=== PATIENT | male | born 1960 | race Caucasian/White ===

== ENCOUNTER 2022-06-13 11:06 | Inpatient (IN) | payer BC ==
[2022-06-13] MEDS ORDERED: NA CHLORIDE 0.9% 1,000 ML ONE (11:41)
[2022-06-13 11:47] LABS: Absolute Lymphocytes (CBC) 0.9 K/uL (0.7-4.9); Hematocrit 45.9 % (39.6-49.0); Lymphocytes % 4.8 % (15.3-44.8); MCV 83.9 fL (80-100); MPV 8.2 fL (7.6-11.3); RBC Red Blood Cell Count 5.47 M/uL (4.33-5.43)
[2022-06-13 12:02] LABS: Albumin 2.9 g/dL (3.4-5.0); Potassium 3.6 mmol/L (3.5-5.1); Protein, Total 6.9 g/dL (6.4-8.2)
--- NOTE | 2022-06-13 12:33 | RAD REPORT ---
EXAM DESCRIPTION: CT - Abdomen Pelvis W Contrast - 06/13/2022 12:22 pm CLINICAL HISTORY: Abdominal pain COMPARISON: none. TECHNIQUE: Computed axial tomography of the abdomen pelvis was obtained. 100 cc Isovue-300 was admin istered intravenously. Oral contrast was not requested which limits evaluation of bowel and appendix All CT scans are performed using dose optimization technique as appropriate and may include automated exposure control or mA/KV adjustment according to patient size. FINDINGS: The liver, spleen, pancreas, adrenal and kidneys appear unremarkable. Marked thickening involves the wall of the descending, transverse and ascending colon. Moderate thick ening involves the wall of sigmoid colon. Pneumatosis intestinalis is not seen. No free air. Trace amount of free fluid IMPRESSION: Marked pancolitis
[2022-06-13 12:54] LABS: Platelet Estimate ADEQ
[2022-06-13 12:55] LABS: Blood Morphology Comment NOT SEEN (NOT SEEN)
--- NOTE | 2022-06-13 13:31 | ER ---
Nurse's Notes [facility] Name: Yusef Andrade Age: 61 yrs Sex: Male : 1960 Arrival Date: 06/13/2022 Time: 11:10 Bed 19 Private MD: Diagnosis: Pancolitis;Abdominal pain, Generalized;Leukocytosis Presentation: 06/13 11:23 Chief complaint: Patient states: diarrhea , abd pain with BM X 5 weeks. Coronavirus iw screen: Client presents with at least one sign or symptom that may indicate coronavirus-19. Ebola Screen: Patient negative for fever greater than or equal to 101.5 degrees Fahrenheit, and additional compatible Ebola Virus Disease symptoms Patient denies exposure to infectious person. Patient denies travel to an Ebola-affected area in the 21 days before illness onset. No symptoms or risks identified at this time. Initial Sepsis Screen: Does the patient meet any 2 criteria? No. Patient's initial sepsis screen is negative. Does the patient have a suspected source of infection? No. Patient's initial sepsis screen is negative. Risk Assessment: Do you want to hurt yourself or someone else? Patient reports no desire to harm self or others. Onset of symptoms was April 2022. 11:23 Method Of Arrival: Ambulatory iw 11:23 Acuity: HELEN 3 iw Historical: - Allergies: 11:24 No Known Allergies; iw - Home Meds: 11:24 None [Active]; iw - PMHx: 11:24 None; iw - Immunization history:: Client reports having NOT received the Covid vaccine. - Social history:: Smoking status: Patient denies any tobacco usage or history of. Screenin:53 Abuse screen: Denies threats or abuse. Denies injuries from another. Nutritional tp1 screening: No deficits noted. Tuberculosis screening: No symptoms or risk factors identified. Fall Risk No fall in past 12 months (0 pts). No secondary diagnosis (0 pts). IV access (20 points). Ambulatory Aid- None/Bed Rest/Nurse Assist (0 pts). Gait- Normal/Bed Rest/Wheelchair (0 pts) Mental Status- Oriented to own ability (0 pts). Assessment: 11:51 General: Appears in no apparent distress. comfortable, Behavior is calm, cooperative. tp1 Pain: Complains of pain in abdomen Pain does not radiate. Pain currently is 0 out of 10 on a pain scale. Quality of pain is described as sharp, Pain began 7 weeks ago. states pain only occurs before a bowel movement Is intermittent. Neuro: Level of Consciousness is awake, alert, obeys commands, Oriented to person, place, time, situation. Cardiovascular: Patient's skin is warm and dry. Respiratory: Airway is patent Respiratory effort is even, unlabored. GI: Abdomen is flat, non-distended, Abd is soft and non tender X 4 quads. Reports diarrhea, vomiting. : No signs and/or symptoms were reported regarding the genitourinary system. EENT: No signs and/or symptoms were reported regarding the EENT system. Derm: Skin is pink, warm \T\ dry. Musculoskeletal: Circulation, motion, and sensation intact. 12:16 Reassessment: escorted to CT via stretcher by [employer]. tp1 12:30 Reassessment: returned from CT. tp1 12:56 Reassessment: Patient appears in no apparent distress at this time. No changes from tp1 previously documented assessment. Patient and/or family updated on plan of care and expected duration. Pain level reassessed. Patient is alert, oriented x 3, equal unlabored respirations, skin warm/dry/pink. Patient denies pain at this time. 13:40 Reassessment: Patient appears in no apparent distress at this time. No changes from tp1 previously documented assessment. Patient is alert, oriented x 3, equal unlabored respirations, skin warm/dry/pink. resting in bed visiting with Patient denies pain at this time. 14:40 Reassessment: Patient appears in no apparent distress at this time. Patient is alert, tp1 oriented x 3, equal unlabored respirations, skin warm/dry/pink. Patient denies pain at this time. 15:28 Reassessment: Patient appears in no apparent distress at this time. No changes from tp1 previously documented assessment. Patient is alert, oriented x 3, equal unlabored respirations, skin warm/dry/pink. Patient denies pain at this time. 16:30 Reassessment: Patient appears in no apparent distress at this time. No changes from tp1 previously documented assessment. 17:11 Reassessment: Patient appears in no apparent distress at this time. No changes from tp1 previously documented assessment. Patient is alert, oriented x 3, equal unlabored respirations, skin warm/dry/pink. resting in be visiting with Patient denies pain at this time. 17:14 Reassessment: attempted to give report. tp1 17:21 Reassessment: report given to Deena LEONARDO. tp1 Vital Signs: 11:23 BP 115 / 62; Pulse 98; Resp 16; Pulse Ox 99% on R/A; iw 11:53 BP 90 / 53; Pulse 81; Resp 16; Temp 97.8(TE); Pulse Ox 96% on R/A; iw 12:40 BP 102 / 61; Pulse 65; Resp 16; Pulse Ox 100% on R/A; tp1 13:15 BP 121 / 79; Pulse 82; Resp 16; Pulse Ox 100% on R/A; tp1 16:01 BP 110 / 68; Pulse 82; Resp 16; Pulse Ox 100% on R/A; tp1 17:11 BP 110 / 66; Pulse 77; Resp 16; Pulse Ox 100% on R/A; tp1 ED Course: 11:10 Patient arrived in ED. am2 11:17 Mejia Pabon DO is Attending Physician. ms3 11:24 Triage completed. iw 11:25 Arm band placed on. iw 11:33 Lizzy Lan, MALISSA is Primary Nurse. tp1 11:39 Initial lab(s) drawn, by me, sent to lab. Inserted saline lock: 22 gauge in left iw antecubital area, using aseptic technique. Blood collected. 11:55 Patient has correct armband on for positive identification. Call light in reach. Side tp1 rails up X 1. Adult w/ patient. 12:24 CT Abd/Pelvis - IV Contrast Only In Process Unspecified. EDMS 13:30 Tres Be is Hospitalizing Provider. ms3 13:52 intact, bleeding controlled, No redness/swelling at site. Pressure dressing applied, 22 vg1 g L AC infiltrated. 14:06 Inserted saline lock: 22 gauge in left wrist, using aseptic technique. vg1 14:06 First set of blood cultures drawn by me. vg1 14:14 Blood Culture Adult (2) Sent. kc6 14:14 Lactate Sent. kc6 16:03 No provider procedures requiring assistance completed. tp1 17:22 Patient admitted, IV remains in place. tp1 Administered Medications: 11:46 Drug: NS 0.9% 1000 ml Route: IV; Rate: 1 bolus; Site: left antecubital; tp1 13:30 Follow up: IV Status: Completed infusion; IV Intake: 1000ml vg1 Medication: 16:02 VIS not applicable for this client. tp1 Intake: 13:30 IV: 1000ml; Total: 1000ml. vg1 Outcome: 13:31 Decision to Hospitalize by Provider. ms3 17:22 Admitted to Med/surg accompanied by tech, via stretcher, room 406, Report called to tp1 deena 17:22 Condition: good 17:22 Discharge instructions given to patient, family, Instructed on the need for admit, Demonstrated understanding of instructions. 17:59 Patient left the ED. tp1 Signatures: Dispatcher [employer] EDNicole Kumar, RN RN Merissa Swift Victoria RN RN vg1 Mejia Pabon, DO ms3 Lizzy Lan RN RN tp1 Madeline Pereira kc6 Corrections: (The following items were deleted from the chart) 12:59 11:53 BP 90 / 53; Pulse 81bpm; Resp 16bpm; Pulse Ox 96% RA; tp1 iw 16:02 16:02 Patient has correct armband on for positive identification. Call light in reach. tp1 Side rails up X 1. Adult w/ patient. tp1
--- NOTE | 2022-06-13 13:31 | EDPHYS ---
Physician Documentation [facility] Name: Yusef Andrade Age: 61 yrs Sex: Male : 1960 Arrival Date: 06/13/2022 Time: 11:10 Bed 19 Private MD: ED Physician Mejia Pabon HPI: 06/13 11:32 This 61 yrs old Male presents to ER via Ambulatory with complaints of Abdominal Pain, ms3 Diarrhea. 11:32 61-year-old male with no past medical history presents for lower abdominal pain while ms3 defecating for 7 weeks. Patient states he has seen his primary care physician and was seen at another emergency department. Patient states his primary care physician placed him on a antibiotic that he is unaware of the name of. Patient states that this time he is not having pain. Patient states he has severe pain with defecation. Patient denies alleviating factors. Patient denies fevers, chills, nausea, vomiting.. Historical: - Allergies: 11:24 No Known Allergies; iw - Home Meds: 11:24 None [Active]; iw - PMHx: 11:24 None; iw - Immunization history:: Client reports having NOT received the Covid vaccine. - Social history:: Smoking status: Patient denies any tobacco usage or history of. ROS: 11:32 Constitutional: Negative for fever, and chills. Neck: Negative for injury, pain, and ms3 swelling, Cardiovascular: Negative for chest pain, and palpitations. Respiratory: Negative for shortness of breath, cough, wheezing, and pleuritic chest pain. 11:32 MS/Extremity: Negative for injury and deformity, Neuro: Negative for headache, weakness, numbness, tingling. 11:32 Abdomen/GI: Positive for abdominal pain. 11:32 All other systems are negative. Exam: 11:32 Constitutional: This is a well developed, well nourished patient who is awake, alert, ms3 and in no acute distress. Head/Face: Normocephalic, atraumatic. Chest/axilla: Normal chest wall appearance and motion. Nontender with no deformity. Cardiovascular: Regular rate and rhythm with a normal S1 and S2. No gallops, murmurs, or rubs. Normal PMI, no JVD. No pulse deficits. Respiratory: Lungs have equal breath sounds bilaterally, clear to auscultation and percussion. No rales, rhonchi or wheezes noted. No increased work of breathing, no retractions or nasal flaring. Abdomen/GI: Soft, non-tender, with normal bowel sounds. No distension or tympany. No guarding or rebound. No evidence of tenderness throughout. Skin: Warm, dry with normal turgor. Normal color with no rashes, no lesions, and no evidence of cellulitis. MS/ Extremity: Pulses equal, no cyanosis. Neurovascular intact. Full, normal range of motion. Psych: Awake, alert, with orientation to person, place and time. Behavior, mood, and affect are within normal limits. 13:31 ECG was reviewed by the Attending Physician. ms3 Vital Signs: 11:23 BP 115 / 62; Pulse 98; Resp 16; Pulse Ox 99% on R/A; iw 11:53 BP 90 / 53; Pulse 81; Resp 16; Temp 97.8(TE); Pulse Ox 96% on R/A; iw 12:40 BP 102 / 61; Pulse 65; Resp 16; Pulse Ox 100% on R/A; tp1 13:15 BP 121 / 79; Pulse 82; Resp 16; Pulse Ox 100% on R/A; tp1 16:01 BP 110 / 68; Pulse 82; Resp 16; Pulse Ox 100% on R/A; tp1 17:11 BP 110 / 66; Pulse 77; Resp 16; Pulse Ox 100% on R/A; tp1 MDM: 11:29 Patient medically screened. ms3 11:32 Differential diagnosis: Nonspecific abd pain, diverticulitis, Proctitis versus ms3 malignancy. 13:31 Data reviewed: vital signs, nurses notes, lab test result(s), EKG, radiologic studies, ms3 and as a result, I will discharge patient. Counseling: I had a detailed discussion with the patient and/or guardian regarding: the historical points, exam findings, and any diagnostic results supporting the discharge/admit diagnosis, lab results, radiology results, the need for further work-up and treatment in the hospital. 13:31 ED course: Discussed labs and imaging with patient and his . They understand/ agree ms3 with plan. All questions answered. Discussed case with Dr Be and he accepts patient as admission.. 06/13 11:30 Order name: CBC with Diff; Complete Time: 13:12 ms3 06/13 11:30 Order name: CMP; Complete Time: 13:12 ms3 06/13 11:30 Order name: Lipase; Complete Time: 13:12 ms3 06/13 11:30 Order name: Urine Microscopic Only ms3 06/13 11:56 Order name: Manual Differential; Complete Time: 13:12 EDMS 06/13 13:13 Order name: Blood Culture Adult (2) ms3 06/13 11:30 Order name: CT Abd/Pelvis - IV Contrast Only; Complete Time: 13:12 ms3 06/13 13:13 Order name: Lactate ms3 06/13 13:13 Order name: Protime (+inr) ms3 06/13 13:13 Order name: Ptt, Activated ms3 06/13 13:37 Order name: Glucose, Ancillary Testing EDMS 06/13 13:40 Order name: SARS RAPID ms3 06/13 17:45 Order name: Urine Dipstick-Ancillary EDMS 06/13 11:30 Order name: IV Saline Lock; Complete Time: 11:41 ms3 06/13 11:30 Order name: Labs collected and sent; Complete Time: 11:41 ms3 06/13 11:30 Order name: Urine Dipstick-Ancillary (obtain specimen); Complete Time: 17:45 ms3 06/13 13:13 Order name: Accucheck; Complete Time: 13:37 3 06/13 13:13 Order name: Cardiac monitoring; Complete Time: 13:37 ms3 06/13 13:13 Order name: EKG - Nurse/Tech; Complete Time: 13:37 3 06/13 13:13 Order name: IV Saline Lock - Large Bore; Complete Time: 14:11 3 06/13 13:13 Order name: O2 Per Protocol; Complete Time: 13:37 3 06/13 13:13 Order name: O2 Sat Monitoring; Complete Time: 13:37 ms3 EC:31 Rate is 65 beats/min. Rhythm is regular. QRS [place] is Normal. OR interval is normal. QRS ms3 interval is normal. Clinical impression: NSR w/ Non-specific ST/T Changes. Interpreted by me. Reviewed by me. Administered Medications: 11:46 Drug: NS 0.9% 1000 ml Route: IV; Rate: 1 bolus; Site: left antecubital; tp1 13:30 Follow up: IV Status: Completed infusion; IV Intake: 1000ml vg1 Disposition Summary: 06/13/22 13:31 Hospitalization Ordered Hospitalization Status: Inpatient Admission ms3 Provider: Tres Be ms3 [facility] ms3 Condition: Stable ms3 Problem: new ms3 Symptoms: are unchanged ms3 Bed/Room Type: Standard ms3 Room Assignment: 406(06/13/22 16:41) dw Diagnosis - Pancolitis ms3 - Abdominal pain, Generalized ms3 - Leukocytosis ms3 Forms: - Medication Reconciliation Form ms3 - SBAR form ms3 Signatures: Dispatcher [employer] Alexandria Bennett RN RN dw Nicole Rader RN MALISSA iw Mejia Pabon DO DO ms3 Lizzy Lan RN RN tp1 Jazmyn Velasco RN vg1 Corrections: (The following items were deleted from the chart) 16:41 13:31 ms3 dw 22:35 13:31 Counseling: I had a detailed discussion with the patient and/or guardian ms3 regarding: the historical points, exam findings, and any diagnostic results supporting the discharge/admit diagnosis, lab results, radiology results, the need for outpatient follow up, to return to the emergency department if symptoms worsen or persist or if there are any questions or concerns that arise at home, ms3
[2022-06-13 14:28] LABS: Protime INR 1.25
[2022-06-13 15:03] LABS: SARS-CoV-2 Antigen Rapid Res Negative (Negative)
--- NOTE | 2022-06-13 15:46 | P.HP ---
Certification for Inpatient Patient admitted to: Inpatient With expected LOS: >2 Midnights Practitioner: I am a practitioner with admitting privileges, knowledge of patient current condition, hospital course, and medical plan of care. Services: Services provided to patient in accordance with Admission requirements found in Title 42 Section 412.3 of the Code of Federal Regulations Patient History Date of Service: 06/13/22 Reason for admission: Diarrhea History of Present Illness: 61 y/o man with past medical history of hypertension and hyperlipidemia presented to the ED complaining 5-week history of abdominal pain and diarrhea. He reports 1 vomiting episode. He states that 7-day course of ciprofloxacin with no improvement. Symptoms became worse. He denied any fever. He denied blood in the stool. He denied any fever. His last meal was this morning. Work-up in the emergency department revealed leukocytosis up to 19,000, serum creatinine elevated indicating acute renal failure. Patient is hospitalized for further management. - Past Medical/Surgical History -: Hypertension -: GERD - Family History Mother -: Other (see notes) (Diverticulitis) - Social History Smoking Status: Never smoker Alcohol use: No CD- Drugs: No Place of Residence: Home Review of Systems Other: Except as documented, all other systems reviewed and negative. Physical Examination - Physical Exam General: Alert, In no apparent distress, Oriented x3 HEENT: Atraumatic, PERRLA, Mucous membr. moist/pink, EOMI, Sclerae nonicteric Neck: Supple, JVD not distended Respiratory: Clear to auscultation bilaterally, Normal air movement Cardiovascular: No edema, Regular rate/rhythm, Normal S1 S2, No murmurs Gastrointestinal: Normal bowel sounds, Soft and benign, Non-distended, No tenderness, No rebound, No guarding Musculoskeletal: No swelling, No tenderness Integumentary: No rashes, No erythema, No cyanosis Neurological: Normal speech, Normal strength at 5/5 x4 extr, Cranial nerves 3-12 intact Lymphatics: No axilla or inguinal lymphadenopathy - Studies Laboratory Data (last 24 hrs) 06/13/22 14:06: PT 13.8 H, INR 1.25, APTT 24.8 06/13/22 11:37: Sodium 134 L, Potassium 3.6, BUN 19 H, Creatinine 1.51 H, Glucose 121 H, Total Bilirubin 1.0, AST 21, ALT 36, Alkaline Phosphatase 78, Lipase 39 L 06/13/22 11:37: WBC 19.60 H, Hgb 15.2, Hct 45.9, Plt Count 316 Assessment and Plan - Problems (Diagnosis) (1) Colitis Current Visit: Yes Status: Acute (2) Leukocytosis Current Visit: Yes Status: Acute - Plan Admit to the medical floor. Start IV antibiotics. Supportive measures with IV hydration. Stool studies-C. difficile, ova and parasites, fecal leukocyte and culture. Serial abdominal examination. Clear liquid diet. Monitor response to treatment. Monitor CBC to follow leukocytosis. Monitor and optimize electrolytes. - Advance Directives Does patient have a Living Will: No Does patient have a Durable POA for Healthcare: No
[2022-06-13 17:45] LABS: Urine Blood Negative (Negative); Urine Glucose Negative (Negative); Urine Protein 2+ (Negative); Urine Specific Gravity 1.015 (1.005-1.030)
[2022-06-13 17:58] VITALS: BMI 25.1
[2022-06-13] MEDS ORDERED: MORPHINE 2 MG/ML SYR IV PRN (18:28)
[2022-06-13] MEDS ORDERED: ACETAMINOPHEN 500 MG TAB PO PRN (18:28)
[2022-06-13] MEDS ORDERED: ONDANSETRON 4 MG/2 ML VIAL IV PRN (18:28)
[2022-06-13] MEDS: NA CHLORIDE 0.9% 1,000 ML IV SCH (18:53)
[2022-06-13] MEDS: PIPER TAZO 3.375 GM in NA CHLORIDE 0.9% 100 ML IV SCH (18:53)
[2022-06-13 18:56] LABS: Urine Bacteria <20 /HPF (<20); Urine Bilirubin NEGATIVE (Negative); Urine Blood Negative (Negative); Urine Clarity Clear (Clear); Urine Color Yellow (Yellow); Urine Glucose NEGATIVE (Negative); Urine Mucus Slight /HPF (None Seen); Urine Protein 1+ (Negative); Urine Urobilinogen Normal (Normal)
--- NOTE | 2022-06-13 20:47 | P.PN ---
Date of Service: 06/14/22 Subjective: feels slightly better ongoing diarrhea, watery, small amounts at a time ROS: 10 point ROS as noted above, otherwise negative Physical Exam: Gen: NAD, AOx3 HEENT: normal conjunctiva, sclera anicteric CV: regular rate & rhythm, no edema Pulm: non-labored respirations, clear bilaterally Abd: soft, non-tender, non-distended Neuro: normal speech, normal affect, moves all extremities vitals reviewed Problem List Pancolitis, failed outpatient treatment HTN HLD LULI Pancolitis CT in ED: marked thickening of descending, transverse, and ascending colon. Moderate thickening involving wall of sigmoid colon. No pneumatosis intestinalis, no free air s/p 7 day course of Cipro as outpatient continue trend CBC stool studies ordered on admission c.diff sent today CLD, advance as tolerated no prior labs, Cr elevated, suspect LULI pt denied CKD secondary to hypovolemia improved VTE: lovenox Code: full Dispo: home, ~2-3 days Time Spent Managing Pts Care (In Minutes): 35
[2022-06-13] MEDS: ENOXAPARIN 40 MG/0.4 ML SQ SCH (21:37)
[2022-06-14] MEDS: PIPER TAZO 3.375 GM in NA CHLORIDE 0.9% 100 ML IV SCH ×3 (01:50→16:06)
[2022-06-14] MEDS: NA CHLORIDE 0.9% 1,000 ML IV SCH ×3 (02:28→22:44)
[2022-06-14 04:17] LABS: Absolute Lymphocytes (CBC) 1.5 K/uL (0.7-4.9); Hematocrit 36.3 % (39.6-49.0); Lymphocytes % 8.4 % (15.3-44.8); MPV 8.5 fL (7.6-11.3); RBC Red Blood Cell Count 4.37 M/uL (4.33-5.43)
[2022-06-14 04:25] LABS: Magnesium 2.1 mg/dL (1.8-2.4); Phosphorus 2.6 mg/dL (2.5-4.9); Potassium 3.4 mmol/L (3.5-5.1)
[2022-06-14] MEDS: ENOXAPARIN 40 MG/0.4 ML SQ SCH (08:41)
[2022-06-14] MEDS ORDERED: POTASSIUM CL SA 10 MEQ TAB PO ONE ×3 (09:00→22:34)
[2022-06-14 11:52] LABS: C.diff Antigen/Toxin Ag neg : Tox neg (NEG : NEG)
[2022-06-14] MEDS: Banana Flakes/T-Galactooligos 1 Dose Packet PO SCH (20:54)
[2022-06-15] MEDS: PIPER TAZO 3.375 GM in NA CHLORIDE 0.9% 100 ML IV SCH ×3 (00:50→16:22)
--- NOTE | 2022-06-15 06:34 | P.PN ---
Date of Service: 06/15/22 Subjective: feels slightly better diarrhea getting slightly more firm, reports ~5 BMs since midnight, small amount tolerating liquids, no worsening in pain ROS: 10 point ROS as noted above, otherwise negative Physical Exam: Gen: NAD, AOx3 HEENT: normal conjunctiva, sclera anicteric CV: regular rate & rhythm, no edema Pulm: non-labored respirations, clear bilaterally Abd: soft, non-tender, non-distended Neuro: normal speech, normal affect, moves all extremities vitals reviewed Problem List Pancolitis, failed outpatient treatment HTN HLD LULI Pancolitis CT in ED: marked thickening of descending, transverse, and ascending colon. Moderate thickening involving wall of sigmoid colon. No pneumatosis intestinalis, no free air s/p 7 day course of Cipro as outpatient continue antibiotic WBCs downtrending stool studies ordered on admission c.diff negative advance to soft diet no prior labs, Cr elevated, suspect LULI pt denied CKD secondary to hypovolemia improved VTE: lovenox Code: full Dispo: home, ~1 day Time Spent Managing Pts Care (In Minutes): 35
[2022-06-15] MEDS: NA CHLORIDE 0.9% 1,000 ML IV SCH ×2 (06:45→15:24)
[2022-06-15 07:41] LABS: Hematocrit 35.2 % (39.6-49.0); MCV 83.3 fL (80-100); MPV 8.4 fL (7.6-11.3); RBC Red Blood Cell Count 4.23 M/uL (4.33-5.43)
[2022-06-15] MEDS: ENOXAPARIN 40 MG/0.4 ML SQ SCH (08:19)
[2022-06-15] MEDS: Banana Flakes/T-Galactooligos 1 Dose Packet PO SCH ×2 (08:23→19:49)
--- NOTE | 2022-06-15 13:11 | EKG ---
Test Date: 2022-06-13 Test Time: 13:38:30 Merchandise Appraiser: IAM MEASUREMENT RESULTS: Intervals: Rate: 65 MN: 130 QRSD: 98 QT: 404 QTc: 420 [place]: P: 22 MN: 130 QRS: -21 T: -20 INTERPRETIVE STATEMENTS: Normal sinus rhythm Nonspecific T wave abnormality Abnormal ECG No previous ECG available for comparison Electronically Signed On 06-15-22 13:06:44 CDT by Jerome Nation
[2022-06-15 22:23] VITALS: O2SAT 99
[2022-06-16] MEDS: PIPER TAZO 3.375 GM in NA CHLORIDE 0.9% 100 ML IV SCH (01:00)
[2022-06-16 07:47] LABS: MCV 82.2 fL (80-100); MPV 7.8 fL (7.6-11.3)
[2022-06-16 08:11] VITALS: BP 154/75; TEMP 97
--- NOTE | 2022-06-16 21:21 | P.DS ---
Admission Date: 06/13/22 Discharge Date: 06/16/22 Disposition: ROUTINE DISCHARGE Discharge Condition: GOOD Reason for Admission: Diarrhea Brief History of Present Illness: 61yo M, PMH: HTN, HLD Presented to ED with 5 days of abdominal and diarrhea. He reports 1 vomiting episode. He states that 7-day course of ciprofloxacin with no improvement. Symptoms became worse. He denied any fever. He denied blood in the stool. He denied any fever. His last meal was this morning. Work-up in the emergency department revealed leukocytosis up to 19,000, serum creatinine elevated indicating acute renal failure. Patient is hospitalized for further management. Hospital Course: Problem List Pancolitis, failed outpatient treatment HTN HLD LULI Patient presented with diarrhea, found to have Pancollitis. He improved with bowel rest, IV fluids, and IV zosyn. His diarrhea significantly improved, started to have more formed stools and less frequent. His diet was advanced and tolerated soft diet /low fiber well. He remained afebrile and leukocytosis significantly improved. Cultures were negative. Patient was deemed stable for discharge home. 10 more days of antibiotics - prescribed Augmentin as transition from Zosyn. Recommend daily over the counter probiotic while on antibiotics. Continue low fiber diet. Follow up with PCP within ~1 week. Recommend follow up with GI. Should have a colonoscopy in the next 2-3 months. Vital Signs/Physical Exam: Temp Pulse Resp BP Pulse Ox 97.0 F 52 14 154/75 H 97 06/16/22 08:00 06/16/22 08:00 06/16/22 08:00 06/16/22 08:00 06/16/22 08:00 Physical Exam: Gen: NAD, AOx3 HEENT: normal conjunctiva, sclera anicteric CV: regular rate & rhythm, no edema Pulm: non-labored respirations, clear bilaterally Abd: soft, non-tender, non-distended Laboratory Data at Discharge: WBC 8.10 K/uL (4.3-10.9) 06/16/22 07:25 Hgb 12.5 g/dL (13.6-17.9) L 06/16/22 07:25 Hct 37.0 % (39.6-49.0) L 06/16/22 07:25 Plt Count 273 K/uL (152-406) 06/16/22 07:25 PT 13.8 SECONDS (9.5-12.5) H 06/13/22 14:06 INR 1.25 06/13/22 14:06 APTT 24.8 SECONDS (24.3-36.9) 06/13/22 14:06 Sodium 142 mmol/L (136-145) D 06/15/22 03:16 Potassium 4.0 mmol/L (3.5-5.1) D 06/15/22 03:16 BUN 13 mg/dL (7-18) 06/15/22 03:16 Creatinine 1.00 mg/dL (0.55-1.3) 06/15/22 03:16 Glucose 101 mg/dL (74-106) 06/15/22 03:16 Phosphorus 2.6 mg/dL (2.5-4.9) 06/14/22 03:51 Magnesium 2.1 mg/dL (1.8-2.4) 06/14/22 03:51 Total Bilirubin 1.0 mg/dL (0.2-1.0) 06/13/22 11:37 AST 21 U/L (15-37) 06/13/22 11:37 ALT 36 U/L (12-78) 06/13/22 11:37 Alkaline Phosphatase 78 U/L (45-117) 06/13/22 11:37 Lipase 39 U/L (73-393) L 06/13/22 11:37 Home Medications: Lisinopril [Zestril] 10 mg PO BEDTIME 06/13/22 Pravastatin Sodium 40 mg PO BEDTIME 06/13/22 Amox/Clavulanate [Augmentin 875-125 Tab] 1 tab PO BID 10 Days #20 tab 06/16/22 New Medications: Amox/Clavulanate [Augmentin 875-125 Tab] 1 tab PO BID 10 Days #20 tab Physician Discharge Instructions: Patient presented with diarrhea, found to have Pancollitis. He improved with bowel rest, IV fluids, and IV zosyn. His diarrhea significantly improved, started to have more formed stools and less frequent. His diet was advanced and tolerated soft diet /low fiber well. He remained afebrile and leukocytosis significantly improved. Cultures were negative. Patient was deemed stable for discharge home. 10 more days of antibiotics - prescribed Augmentin as transition from Zosyn. Recommend daily over the counter probiotic while on antibiotics. Continue low fiber diet. Follow up with PCP within ~1 week. Recommend follow up with GI. Should have a colonoscopy in the next 2-3 months. Followup: Eveline Lozano [Primary Care Provider] - Time spent managing pt's care (in minutes): 45
== END 2022-06-16 08:28 | disposition home or self-care (01) | DRG 392 ==
LOC: ER 11:06 → ERHOLD 15:29 → 4TH 17:22
PROVIDERS: ADMIT Internal Medicine; ATTEND Hospitalist
DX: K52.9 Noninfective gastroenteritis and colitis, unspecified (principal); N17.9 Acute kidney failure, unspecified; I10 Essential (primary) hypertension; E78.5 Hyperlipidemia, unspecified; E86.1 Hypovolemia; K21.9 Gastro-esophageal reflux disease without esophagitis; D72.829 Elevated white blood cell count, unspecified; Z28.310 Unvaccinated for COVID-19; Z79.899 Other long term (current) drug therapy; Z20.822 Contact with and (suspected) exposure to COVID-19
CPT/HCPCS: 36415; 74177; 80048; 80053; 81001; 81003; 82947; 83605; 83690; 83735; 84100; 84132; 85025; 85027; 85610; 85730; 87040; 87177; 87209; 87324; 87811; 89055; 93005; 94760; 96360; 96361; 99285; J1650; J2543; J7030; Q9967

== ENCOUNTER 2022-06-30 14:17 | Emergency (ER) | payer BC ==
--- OUTSIDE RECORDS SUMMARY | 2022-06-30 14:22 | XMS REPORT | Continuity of Care Document ---
:1960 Author Organization [facility] t Address [address] [place] [address] Care Team Providers Name Role Phone Gayathri Lozano Attending Clinician Martha Mcguire Attending Clinician Unavailable Gayathri Lozano Attending Clinician Gayathri Lozano Admitting Clinician Unavailable Payers Payer Name Policy Type Policy Number Effective Date Expiration Date S ource Problems Condition Condition Condition Status Onset Resolution Last Treating Co mments Source Name Details Category Date Date Treatment Clinician Date Hypertensi Hypertens Problem Active 2022-05-29 Memoria ve miriam 03:29:15 l disorder, disorder, Herm rita systemic systemic arterial arterial (disorder) (disorder) Active Problem 05/29/2022 [facility] Impotence Impotence Problem Active 2022-05-29 Memoria of organic of organic 03:29:15 l origin origin [place] (disorder) (disorder) Active Problem 05/29/2022 [facility] Lateral Lateral Problem Active 2022-05-29 Me moria epicondyli epicondyli 03:29:15 l tis tis [place] (disorder) (disorder) Active Problem 05/29/2022 [facility] Mixed Mixed Problem Active 2022-05-29 Memor ia hyperlipid hyperlipid 03:29:15 l emia emia Arsenio (disorder) (disorder) Active Problem 05/29/2022 [facility] Screening Screening Problem Active 2022-05-29 Memoria status status 03:29:15 l (finding) (finding) Herm rita Active Problem 05/29/2022 [facility] Sinus Sinus Problem Active 2022-05-29 Memor ia bradycardi bradycardi 03:29:15 l hari Cesar (disorder) (disorder) Active Problem 05/29/2022 [facility] Other Other Problem 2022-05-29 2022-05-29 M emoria viral viral 05-26 03:29:15 03:29:15 l enteritis enteritis 18:09: Herm rita 05/26/2022 00 05/29/2022 [facility] Dizziness Dizziness Problem 2022-04-22 2022-04-22 Memoria and and 04-19 03:21:27 03:21:27 l giddiness giddiness 19:59: Herm rita 04/19/2022 00 04/22/2022 [facility] Bradycardi Bradycard Problem 2022-04-22 2022-04-22 Memoria amanda noriega, 04-19 03:21:27 03:21:27 l unspecifie unspecifie 19:53: He rmann d d 00 04/19/2022 04/22/2022 [facility] History of Past Illness Condition Condition Condition Status Onset Resolution Last Treating Co mments Source Name Details Category Date Date Treatment Clinician Date Encounter Problem 2021-11-18 2021-11-18 Memoria for Encounter 11-15 01:34:19 01:34:19 l screening for 16:45: Arsenio for screening 00 malignant for neoplasm malignant of neoplasm prostate of prostate 11/15/2021 11/18/2021 [facility] Encounter Encounter Problem 2021-11-18 2021-11-18 Memoria for for 11-15 01:34:19 01:34:19 l general general 16:44: Arsenio adult adult 00 medical medical examinatio examinatio n without n without abnormal abnormal findings findings 11/15/2021 11/18/2021 [facility] Mixed Mixed Problem 2021-11-18 2021-11-18 M emoria hyperlipid hyperlipid 11-15 01:34:19 01:34:19 l emia emia 16:44: Arsenio 11/15/2021 00 [facility] Group Essential Essential Problem 2021-11-18 2021-11-18 Memoria (primary) (primary) 11-15 01:34:19 01:34:19 l hypertensi hypertensi 16:44: He rmann on on 11/15/2021 11/18/2021 [facility] Allergies, Adverse Reactions, Alerts Allergy Allergy Status Severity Reaction(s) Onset Inactive Treating Comm ents Source Name Type Date Date Clinician No Known DA Active [facility] Allergie 05-21 Clear s 00:00: Roger 00 [facility] Social History Smoking Status Start Date Stop Date Source Social History [facility] Medications Ordered Filled Start Stop Current Ordering Indication Dosage Frequency Signature Comments Components Source Medication Medication Date Date Medication? Clinician (SIG) Name Name Cipro 500 Yes 500 mg = 1 Me moria mg oral 9 tab, PO, l tablet 18:15: Q12H, X 7 Bronson n 00 day, # 14 tab, 0 Refill(s), Pharmacy: [facility] [id number], 180.34, cm, 05/26/22 13:00:00 CDT, Height, 86.545, kg, 05/26/22 13:00:00 CDT, Weight lisinopril Yes = 1 tab, Mem oria 10 mg oral 2-28 PO, Daily, l tablet 16:39: # 90 tab, Bronson n 00 1 Refill(s), Pharmacy: [facility], 180.34, cm, 11/15/21 10:21:00 RISK TECH, Height, 91.727, kg, 11/15/21 10:21:00 RISK TECH, Weight pravastatin Yes = 1 tab, Me moria 40 mg oral 2-28 PO, l tablet 16:39: Bedtime, # Tasneem nn 00 90 tab, 1 Refill(s), Pharmacy: [facility], 180.34, cm, 11/15/21 10:21:00 RISK TECH, Height, 91.727, kg, 11/15/21 10:21:00 RISK TECH, Weight pravastatin 2019-09 Yes = 1 tab, Me moria 40 mg oral 2-01 PO, l tablet 14:24: Bedtime, # Tasneem nn 00 90 tab, 3 Refill(s), Pharmacy: [facility], 180.34, cm, 08/18/20 8:09:00 RISK TECH, Height, 88.818, kg, 08/18/20 8:09:00 RISK TECH, Weight lisinopril 2019- Yes = 1 tab, Mem oria 10 mg oral 2-01 PO, Daily, l tablet 14:24: # 90 tab, Bronson n 00 3 Refill(s), Pharmacy: [facility], 180.34, cm, 08/18/20 8:09:00 RISK TECH, Height, 88.818, kg, 08/18/20 8:09:00 RISK TECH, Weight pravastatin 2019- Yes = 1 tab, Me moria 40 mg oral 7-13 PO, l tablet 15:02: Bedtime, # Tasneem nn 00 90 tab, 0 Refill(s), Pharmacy: [facility], 180.34, cm, 07/03/19 8:21:00 CDT, Height, 89.818, kg, 07/03/19 8:21:00 CDT, Weight pravastatin 2018-09 Yes = 1 tab, Me moria 40 mg oral 0-14 PO, l tablet 16:05: Bedtime, # Tasneem nn 03 90 tab, Pharmacy: [facility] lisinopril 2018-09 Yes = 1 tab, Mem oria 10 mg oral 0-14 PO, Daily, l tablet 16:05: # 90 tab, Bronson n 03 Pharmacy: [facility] Diclofenac 2019-0 Yes 2 gm = 1 Mem oria Sodium 0.01 4-17 appl, TOP, l MG/MG 18:30: QID, PRN Arsenio Topical Gel 01 for pain, [Voltaren] # 100 gm, 0 Refill(s), Pharmacy: [facility] lisinopril 2019- Yes = 1 tab, Mem oria 10 mg oral 4-16 PO, Daily, l tablet 13:22: # 90 tab, Bronson n 17 1 Refill(s), Pharmacy: [facility] pravastatin 2019-0 Yes 40 mg = 1 M emoria 40 mg oral 4-16 tab, PO, l tablet 13:22: Bedtime, # Tasneem nn 17 90 tab, 1 Refill(s), Pharmacy: [facility] pravastatin No 40 mg = 1 M emoria 40 mg oral 4-16 tab, PO, l tablet 13:21: Bedtime, # Tasneem nn 14 90 tab, 1 Refill(s), Pharmacy: [place] [id number] lisinopril No = 1 tab, Mem oria 10 mg oral 4-16 PO, Daily, l tablet 13:21: # 90 tab, Bronson n 12 1 Refill(s), Pharmacy: [place] [address] Diclofenac No 2 gm = 1 Mem oria Sodium 0.01 4-16 appl, TOP, l MG/MG 13:19: QID, PRN [place] Topical Gel 00 for pain, [Voltaren] # 100 gm, 0 Refill(s), Pharmacy: [place] [address] lisinopril No = 1 tab, Mem oria 10 mg oral 1-28 PO, Daily, l tablet 16:48: # 90 tab, Bronson n 38 Pharmacy: [facility] lisinopril 2017-09 No 10 mg = 1 Me moria 10 mg oral 0-26 tab, PO, l tablet 15:41: Daily, # Arsenio 09 90 tab, 0 Refill(s), called to pharmacy pravastatin 2017-09 No 40 mg = 1 M emoria 40 mg oral 0-26 tab, PO, l tablet 15:41: Bedtime, # Tasneem nn 08 90 tab, 1 Refill(s), called to pharmacy pravastatin Yes 40 mg = 1 M emoria 40 mg oral 4-19 tab, PO, l tablet 13:24: Bedtime, # Tasneem nn 12 90 tab, 1 Refill(s), Pharmacy: [facility] diclofenac Yes 100 mg = 1 M emoria sodium 100 4-19 tab, PO, l mg oral 13:24: Daily, PRN Herm rita tablet, 00 pain and extended inflammati release on, # 90 tab, 0 Refill(s), Pharmacy: [facility] lisinopril Yes 10 mg = 1 Me moria 10 mg oral 4-19 tab, PO, l tablet 13:24: Daily, # Arsenio 00 90 tab, 1 Refill(s), Pharmacy: [facility] Immunizations Ordered Immunization Filled Immunization Date Status Commen ts Source Name Name influenza virus 2021-06-27 Completed [facility] vaccine, inactivated 00:00:00 Herm rita [id number] 2021-03-02 Completed Robert rial [id number] 00:00:00 Ar[place] [id number] 2021-02-02 Completed Robert rial [id number] 00:00:00 Ar[place] influenza virus 2020-08-18 Completed [facility] vaccine, 14:29:00 [place] inactivated<sup>1</s up> influenza virus 2019-07-03 Completed [facility] vaccine, 14:16:00 [place] inactivated<sup>1</s up> influenza virus 2019-07-03 Completed [facility] vaccine, 14:16:00 [place] inactivated<sup>2</s up> diphtheria/pertussis 2019-07-03 Completed Robert rial , acel/tetanus 14:13:00 Arsenio adult<sup>3</sup> diphtheria/pertussis 2019-07-03 Completed Robert rial , acel/tetanus 14:13:00 [place] adult<sup>4</sup> influenza virus 2018-07-13 Completed [facility] vaccine, 15:08:00 Arsenio inactivated<sup>2</s up> influenza virus 2018-07-13 Completed [facility] vaccine, 15:08:00 [place] inactivated<sup>1</s up> influenza virus 2018-07-13 Completed [facility] vaccine, 15:08:00 [place] inactivated<sup>3</s up> Vital Signs Vital Name Observation Time Observation Value Comments Source Temperature Oral (F) 2022-05-26 18:00:00 98.2 F [facility] Heart Rate 2022-05-26 18:00:00 [facility] [place] Respitory Rate 2022-05-26 18:00:00 Naila Salinas Systolic (mm Hg) 2022-05-26 18:00:00 Robert hwang Ar[place] Diastolic (mm Hg) 2022-05-26 18:00:00 Rene Cesar Height 2022-05-26 18:00:00 180.34 cm [facility] Weight 2022-05-26 18:00:00 [facility] BMI Calculated 2022-05-26 18:00:00 Memori al [place] Temperature Oral (F) 2022-04-19 19:38:00 98.3 F [facility] [place] Heart Rate 2022-04-19 19:38:00 [facility] Arsenio Respitory Rate 2022-04-19 19:38:00 Memori al [place] Systolic (mm Hg) 2022-04-19 19:38:00 Robert rial [place] Diastolic (mm Hg) 2022-04-19 19:38:00 Mem orial [place] Height 2022-04-19 19:38:00 180.34 cm [facility] [place] Weight 2022-04-19 19:38:00 [facility] [place] BMI Calculated 2022-04-19 19:38:00 Memori al [place] Temperature Oral (F) 2021-11-15 16:21:00 98.0 F [facility] [place] Heart Rate 2021-11-15 16:21:00 [facility] [place] Respitory Rate 2021-11-15 16:21:00 Memori al [place] Systolic (mm Hg) 2021-11-15 16:21:00 Robert rial [place] Diastolic (mm Hg) 2021-11-15 16:21:00 Mem orial [place] Height 2021-11-15 16:21:00 180.34 cm [facility] [place] Weight 2021-11-15 16:21:00 [facility] [place] BMI Calculated 2021-11-15 16:21:00 Memori al [place] Systolic (mm Hg) 2020-08-18 14:09:00 Robert rial Arsenio Diastolic (mm Hg) 2020-08-18 14:09:00 Mem orial [place] Heart Rate 2020-08-18 14:09:00 [facility] Arsen[place] Respitory Rate 2020-08-18 14:09:00 Memori al [place] Temperature Oral (F) 2020-08-18 14:09:00 98.0 F [facility] [place] Height 2020-08-18 14:09:00 180.34 cm [facility] [place] Weight 2020-08-18 14:09:00 [facility] Arsenio BMI Calculated 2020-08-18 14:09:00 Memori al [place] Systolic (mm Hg) 2019-07-03 13:21:00 Robert rial [place] Diastolic (mm Hg) 2019-07-03 13:21:00 Mem orial [place] Heart Rate 2019-07-03 13:21:00 [facility] Arsenio Respitory Rate 2019-07-03 13:21:00 Memori al [place] Temperature Oral (F) 2019-07-03 13:21:00 98.0 F [facility] [place] Height 2019-07-03 13:21:00 180.34 cm [facility] [place] Weight 2019-07-03 13:21:00 [facility] Arsenio BMI Calculated 2019-07-03 13:21:00 Memori al [place] Height 2019-01-01 13:06:00 180.34 cm [facility] [place] Weight 2019-01-01 13:06:00 [facility] [place] BMI Calculated 2019-01-01 13:06:00 Memori al [place] Temperature Oral (F) 2019-01-01 13:06:00 97.3 F [facility] [place] Heart Rate 2019-01-01 13:06:00 [facility] Arsenio Systolic (mm Hg) 2019-01-01 13:06:00 Robert rial [place] Diastolic (mm Hg) 2019-01-01 13:06:00 Mem orial [place] BMI Calculated 2018-07-13 14:11:00 Memori al [place] Weight 2018-07-13 14:11:00 [facility] Arsenio Temperature Oral (F) 2018-07-13 14:11:00 98.0 F [facility] [place] Heart Rate 2018-07-13 14:11:00 [facility] Arsenio Height 2018-07-13 14:11:00 180.34 cm [facility] [place] Systolic (mm Hg) 2018-07-13 14:11:00 Robert rial [place] Diastolic (mm Hg) 2018-07-13 14:11:00 Mem orial [place] Systolic (mm Hg) 2018-05-08 13:37:00 Robert rial [place] Diastolic (mm Hg) 2018-05-08 13:37:00 Mem orial Arsenio Heart Rate 2018-05-08 13:37:00 [facility] [place] Respitory Rate 2018-01-04 13:06:00 Memori al [place] Heart Rate 2018-01-04 13:06:00 [facility] Arsenio Weight 2018-01-04 13:06:00 [facility] Ar[place]io Temperature Oral (F) 2018-01-04 13:06:00 98.3 F [facility] [place] Height 2018-01-04 13:06:00 180.34 cm [facility] Arsenio BMI Calculated 2018-01-04 13:06:00 Renewilly kendrick Arsenio Systolic (mm Hg) 2018-01-04 13:06:00 Robert Cesar Diastolic (mm Hg) 2018-01-04 13:06:00 Mem jonathan Cesar Procedures Procedure Date / Time Performed Performing Clinician [facility] rohini Colonoscopy<sup>1</sup> 2018-02-23 05:00:00 Robert hwang Arsenio Eye examination 2017-02-27 05:00:00 [facility] Encounters Start End Encounter Admission Attending Care Care Encounter Source Date/Time Date/Time Type Type Clinicians Facility Department ID 2022-05-26 2022-05-27 Outpatient nullFlavo [facility] [id number] Memoria 18:00:00 04:59:59 r Primary 15 l Alli Boateng 2022-05-26 2022-05-26 Outpatient Blake, [facility] [id number] 13:00:00 23:59:59 Gayathri R Phill 2022-05-26 2022-05-26 Outpatient MHIE MHIE [id number] Memoria 13:00:00 13:00:00 15 lino [place] 2022-05-21 2022-05-21 Emergency EM Shayla, HCACL AERS [id number] [facility] 15:56:00 16:59:00 Tarrell 59 [facility] 2022-04-20 2022-04-21 Between nullFlavo [facility] [id number] Memoria 13:41:08 13:41:08 Visit r Primary 24 l Alli Boateng 2022-04-20 2022-04-21 Outpatient [facility] [id number] 08:41:08 08:41:08 24 2022-04-19 2022-04-21 Phone nullFlavo [facility] [id number] Memoria 21:50:21 04:59:59 Message r Primary 10 l Care Jaylen Boateng nn 2022-04-19 2022-04-20 Outpatient MHMG [facility] [id number] 16:50:21 23:59:59 10 2022-04-19 2022-04-20 Outpatient nullFlavo [facility] [id number] Memoria 19:45:00 04:59:59 r Primary 14 l Care Jaylen Haleya 2022-04-19 2022-04-19 Outpatient Blake, [facility] [id number] 14:45:00 23:59:59 Gayathri R 14 2022-04-19 2022-04-19 Outpatient MHIE MHIE [id number] Memoria 14:45:00 14:45:00 14 lino Cesar 2021-11-16 2021-11-17 Between nullFlavo [facility] [id number] Memoria 14:08:39 14:08:39 Visit r Primary 22 Alli Boateng 2021-11-16 2021-11-17 Outpatient [facility] [id number] 08:08:39 08:08:39 22 2021-11-15 2021-11-16 Outpatient nullFlavo [facility] [id number] Memoria 16:30:00 05:59:59 r Primary 13 Alli Boateng 2021-11-15 2021-11-15 Outpatient Blake, [facility] [id number] 10:30:00 23:59:59 Gayathri R 13 2021-11-15 2021-11-15 Outpatient MHIE MHIE [id number] Memoria 10:30:00 10:30:00 13 lino Cesar 2020-08-19 2020-08-20 Between nullFlavo [facility] [id number] Memoria 19:08:03 19:08:03 Visit r Primary 21 Alli Boateng 2020-08-19 2020-08-20 Outpatient [facility] [id number] 13:08:03 13:08:03 21 2020-08-18 2020-08-19 Outpatient nullFlavo [facility] [id number] Memoria 14:15:00 05:59:59 r Primary 12 lino Boateng 2020-08-18 2020-08-18 Outpatient Blake, [facility] [id number] 08:15:00 23:59:59 Gayathri R 12 2020-08-18 2020-08-18 Outpatient MHIE [facility]IE [id number] Memoria 08:15:00 08:15:00 12 lino Cesar 2020-03-30 2020-04-01 Phone nullFlavo [facility] [id number] Memoria 14:59:53 04:59:59 Message r Primary 09 l Alli Boateng 2020-03-30 2020-04-01 Phone nullFlavo [facility] [id number] Memoria 12:45:52 04:59:59 Message r Primary 08 l Alli Boateng 2020-03-30 2020-03-31 Outpatient [facility] [id number] 09:59:53 23:59:59 09 2020-03-30 2020-03-31 Outpatient [facility] [id number] 07:45:52 23:59:59 08 2019-07-04 2019-07-05 Between nullFlavo [facility] [id number] Memoria 18:11:46 18:11:46 Visit r Primary 18 l Alli Boateng 2019-07-04 2019-07-05 Outpatient [facility] [id number] 13:11:46 13:11:46 18 2019-07-03 2019-07-04 Outpatient nullFlavo [facility] [id number] Memoria 13:30:00 04:59:59 r Primary 11 l Alli Boateng 2019-07-03 2019-07-03 Outpatient Lozano, [facility] [id number] 08:30:00 23:59:59 Gayathri 11 2019-07-03 2019-07-03 Outpatient MHIE MHIE [id number] Memoria 08:30:00 08:30:00 11 lino Cesar 2019-07-01 2019-07-03 Phone nullFlavo [facility] [id number] Memoria 12:24:16 04:59:59 Message r Primary 07 lino Boateng 2019-07-01 2019-07-02 Outpatient [facility] [id number] 07:24:16 23:59:59 07 2019-01-02 2019-01-03 Between nullFlavo [facility] [id number] Memoria 14:59:57 14:59:57 Visit r Primary 15 l Alli Boateng 2019-01-02 2019-01-03 Outpatient MH[facility] [id number] 09:59:57 09:59:57 15 2019-01-01 2019-01-02 Outpatient nullFlavo [facility] [id number] Memoria 13:15:00 04:59:59 r Primary 10 l Alli Boateng 2019-01-01 2019-01-01 Outpatient Blake, [facility] [id number] 08:15:00 23:59:59 Gayathri 10 2019-01-01 2019-01-01 Outpatient MHIE MHIE [id number] Memoria 08:15:00 08:15:00 10 lino Cesar 2018-10-15 2018-10-17 Phone nullFlavo [facility] [id number] Memoria 14:18:00 05:59:59 Message r Primary 06 l Alli Boateng 2018-10-15 2018-10-16 Outpatient [facility] [id number] 08:18:00 23:59:59 06 2018-10-15 2018-10-16 Outpatient [facility] [id number] 08:18:00 23:59:59 06 2018-07-13 2018-07-15 Phone nullFlavo [facility] [id number] Memoria 15:04:00 04:59:59 Message r Primary 05 l Alli Boateng 2018-07-13 2018-07-14 Outpatient MH[facility] [id number] 10:04:00 23:59:59 05 2018-07-13 2018-07-14 Outpatient nullFlavo [facility] [id number] Memoria 14:30:00 04:59:59 r Primary 09 l Alli Boateng 2018-07-13 2018-07-13 Outpatient Blake, [facility] [id number] 09:30:00 23:59:59 Gayathri 09 2018-07-13 2018-07-13 Outpatient MHIE MHIE [id number] Memoria 09:30:00 09:30:00 09 lino Cesar 2018-06-18 2018-06-20 Phone nullFlavo [facility] [id number] Memoria 12:24:00 04:59:59 Message r Primary 04 lino Boateng 2018-06-18 2018-06-19 Outpatient [facility] [id number] 07:24:00 23:59:59 04 2018-05-08 2018-05-10 Phone nullFlavo [facility] [id number] Memoria 13:33:00 04:59:59 Message r Primary 03 l Alli Boateng 2018-05-08 2018-05-09 Outpatient [facility] [id number] 08:33:00 23:59:59 03 2018-02-23 2018-02-25 Outside nullFlavo [facility] [id number] Memoria 19:46:00 04:59:59 Medical r Primary 02 l Records Care Jaylen Boateng 2018-02-23 2018-02-24 Outpatient [facility] [id number] 14:46:00 23:59:59 02 2018-02-06 2018-02-08 Outside nullFlavo [facility] [id number] Memoria 20:12:00 04:59:59 Medical r Primary 01 l Records [facility] Jaylen Boateng 2018-02-06 2018-02-07 Outpatient MHMG [facility] [id number] 15:12:00 23:59:59 01 2018-01-04 2018-01-05 Outpatient nullFlavo [facility] [id number] Memoria 13:15:00 04:59:59 r Primary 08 l [facility] Jaylen Boateng 2018-01-04 2018-01-04 Outpatient Lozano, MG MHMG [id number] 08:15:00 23:59:59 Gayathri 08 2018-01-04 2018-01-04 Outpatient MHIE MHIE [id number] Memoria 08:15:00 08:15:00 08 lino Cesar 2017-05-23 2017-05-23 Outpatient MHIE MHIE [id number] Memoria 08:15:00 08:15:00 07 lino Cesar 2017-04-24 2017-04-24 Outpatient MHIE MHIE [id number] Memoria 16:15:00 16:15:00 06 lino Cesar 2017-01-09 2017-01-09 Outpatient MHIE MHIE [id number] Memoria 14:30:00 14:30:00 05 lino Cesar 2016-12-14 2016-12-14 Outpatient MHIE MHIE [id number] Memoria 08:15:00 08:15:00 04 lino Cesar 2016-05-30 2016-05-30 Outpatient MHIE MHIE [id number] Memoria 08:15:00 08:15:00 03 lino Cesar 2016-02-16 2016-02-16 Outpatient MHIE MHIE [id number] Memoria 11:00:00 11:00:00 02 lino Cesar 2015-12-21 2015-12-21 Outpatient IE IE [id number] Memoria 10:30:00 10:30:00 lino Cesar 2015-11-12 2015-11-12 [id number] Memoria 08:00:00 08:00:00 00 lino Arsenio Results Test Description Test Time Test Comments Results Result Comments Source HEMATOLOGY 2022-04-19 20:04:00 Test Item Value Reference Range Interpretation Comme nts Hgb (test code = Hgb) 14.3 13.2-17.1 [facility]DL[facility]22[facility]48 20:04:00 Test Item Value Reference Range Interpretation Comments Hct (test code = Hct) 42.7 38.5-50.0 [facility] AllianceSebedqyAAOXPXHGNI2672-13-20 20:04:00 Test Item Value Reference Range Interpretation Comments MCV (test code = MCV) 83.1 80.0-100.0 [facility] AllianceDpxmbcxXHLFQTEXZP6549-59-99 20:04:00 Test Item Value Reference Range Interpretation Comments MCH (test code = MCH) 27.8 pg 27.0-33.0 [facility] AllianceSasdewaJZYJAGTMKU4926-14-68 20:04:00 Test Item Value Reference Range Interpretation Comments MCHC (test code = MCHC) 33.5 32.0-36.0 [facility] Allian[id number] 20:04:00 Test Item Value Reference Range Interpretation Comments RDW (test code = RDW) 12.8 11.0-15.0 [facility] AllianceNpmefwdUDBIPCLKSA4335-88-05 20:04:00 Test Item Value Reference Range Interpretation Comments Platelet (test code = Platelet) 216 140-400 [facility] AllianceCitvmuiKKGMZHXMXH2625-34-05 20:04:00 Test Item Value Reference Range Interpretation Comments MPV (test code = MPV) 11.2 7.5-12.5 [facility] AllianceQjvkxlpLRJZLPSDXN1282-47-73 20:04:00 Test Item Value Reference Range Interpretation Comments Neutrophils # (test code = Neutrophils 4071 0124-5776 #) [facility] AllianceBsnubwjGBJIZCQPBF9886-25-65 20:04:00 Test Item Value Reference Range Interpretation Comments Lymphocytes # (test code = Lymphocytes 2208 850-3900 #) [facility] Allian[id number] 20:04:00 Test Item Value Reference Range Interpretation Comments Monocytes # (test code = Monocytes #) 469 200-950 [facility] AllianceJlnjgheDYDICBILFC1119-47-41 20:04:00 Test Item Value Reference Range Interpretation Comments Eosinophils # (test code = Eosinophils 110 15-500 #) [facility] AllianceNbvgnuvWHOWBUNFTO6625-43-34 20:04:00 Test Item Value Reference Range Interpretation Comments Basophils # (test code 41 See_Comment [Aut omated message] The = Basophils #) system which generated this result tra nsmitted reference range : <=200. The reference r primitivo was not used to int erpret this result as normal/abnormal . [facility] A[id number] 20:04:00 Test Item Value Reference Range Interpretation Comments Segs (test code = Segs) [address] [place] [id number] 20:04:00 Test Item Value Reference Range Interpretation Comments Lymphocytes (test code = Lymphocytes) 32.0 [place] [id number] 20:04:00 Test Item Value Reference Range Interpretation Comments Monocytes (test code = Monocytes) 6.8 [place] [id number] 20:04:00 Test Item Value Reference Range Interpretation Comments Eosinophils (test code = Eosinophils) 1.6 [place] [id number] 20:04:00 Test Item Value Reference Range Interpretation Comments Basophils (test code = Basophils) 0.6 [facility]2022-08-02 20:04:00 Test Item Value Reference Range Interpretation Comments Glucose Lvl (test code = Glucose Lvl) 102 65-139 [facility]2022-08-02 20:04:00 Test Item Value Reference Range Interpretation Comments BUN (test code = BUN) 25 7-25 [facility]2022-08-02 20:04:00 Test Item Value Reference Range Interpretation Comments Creatinine Lvl (test code = Creatinine 1.40 0.70-1.35 Lvl) [facility]2022-08-02 20:04:00 Test Item Value Reference Range Interpretation Comments eGFR (test code = eGFR) 56 [place] [id number] 20:04:00 Test Item Value Reference Range Interpretation Comments B/C Ratio (test code = B/C Ratio) 18 6-22 [place] [id number] 20:04:00 Test Item Value Reference Range Interpretation Comments Sodium Lvl (test code = Sodium Lvl) 143 135-146 [place] [id number] 20:04:00 Test Item Value Reference Range Interpretation Comments Potassium Lvl (test code = Potassium 4.3 3.5-5.3 Lvl) [place] [id number] 20:04:00 Test Item Value Reference Range Interpretation Comments Chloride Lvl (test code = Chloride Lvl) 105 98-110 [place] [id number] 20:04:00 Test Item Value Reference Range Interpretation Comments CO2 (test code = CO2) 29 20-32 [place] [id number] 20:04:00 Test Item Value Reference Range Interpretation Comments Calcium Lvl (test code = Calcium Lvl) 9.5 8.6-10.3 [place] [id number] 20:04:00 Test Item Value Reference Range Interpretation Comments Total Protein (test code = Total 6.5 6.1-8.1 Protein) [facility]2022-08-02 20:04:00 Test Item Value Reference Range Interpretation Comments Albumin Lvl (test code = Albumin Lvl) 4.5 3.6-5.1 [place] 681592-08-02 20:04:00 Test Item Value Reference Range Interpretation Comments Globulin (test code = Globulin) 2.0 1.9-3.7 [place] 681592-08-02 20:04:00 Test Item Value Reference Range Interpretation Comments A/G Ratio (test code = A/G Ratio) 2.3 1.0-2.5 [place] 681592-08-02 20:04:00 Test Item Value Reference Range Interpretation Comments Bili Total (test code = Bili Total) 0.5 0.2-1.2 [place] 681592-08-02 20:04:00 Test Item Value Reference Range Interpretation Comments Alk Phos (test code = Alk Phos) 50 35-144 [facility]2022-08-02 20:04:00 Test Item Value Reference Range Interpretation Comments ASPARTATE TRANSAMINASE (test code = 13 10-35 ASPARTATE TRANSAMINASE) [place] 681592-08-02 20:04:00 Test Item Value Reference Range Interpretation Comments ALANINE AMINOTRANSFERASE (test code = 20 9-46 ALANINE AMINOTRANSFERASE) [facility] AllianceRgqzlodHHERLRPGAM2567-31-56 20:04:00 Test Item Value Reference Range Interpretation Comments WBC X 10x3 (test code = WBC X 10x3) 6.9 3.8-10.8 [place] 167892-08-02 20:04:00 Test Item Value Reference Range Interpretation Comments RBC X 10x6 (test code = RBC X 10x6) 5.14 4.20-5.80 [place] 681592-02-28 16:49:00 Test Item Value Reference Range Interpretation Comments Glucose Lvl (test code = Glucose Lvl) 99 65-99 [place] 681592-02-28 16:49:00 Test Item Value Reference Range Interpretation Comments BUN (test code = BUN) 26 7-25 [place] 681592-02-28 16:49:00 Test Item Value Reference Range Interpretation Comments Creatinine Lvl (test code = Creatinine 1.31 0.70-1.25 Lvl) [facility]2022-02-28 16:49:00 Test Item Value Reference Range Interpretation Comments eGFR NON-AFR. HAITIAN (test code = 58 eGFR NON-AFR. HAITIAN) [facility]2022-02-28 16:49:00 Test Item Value Reference Range Interpretation Comments eGFR (test code = eGFR 67 ) [facility]2022-02-28 16:49:00 Test Item Value Reference Range Interpretation Comments B/C Ratio (test code = B/C Ratio) 20 6-22 [place] 681592-02-28 16:49:00 Test Item Value Reference Range Interpretation Comments Sodium Lvl (test code = Sodium Lvl) 140 135-146 [place] 681592-02-28 16:49:00 Test Item Value Reference Range Interpretation Comments Potassium Lvl (test code = Potassium 5.2 3.5-5.3 Lvl) [place] 681592-02-28 16:49:00 Test Item Value Reference Range Interpretation Comments Chloride Lvl (test code = Chloride Lvl) 104 98-110 [place] 681592-02-28 16:49:00 Test Item Value Reference Range Interpretation Comments CO2 (test code = CO2) 30 20-32 [place] 681592-02-28 16:49:00 Test Item Value Reference Range Interpretation Comments Calcium Lvl (test code = Calcium Lvl) 10.0 8.6-10.3 [place] 681592-02-28 16:49:00 Test Item Value Reference Range Interpretation Comments Total Protein (test code = Total 7.0 6.1-8.1 Protein) [place] 681592-02-28 16:49:00 Test Item Value Reference Range Interpretation Comments Albumin Lvl (test code = Albumin Lvl) 4.7 3.6-5.1 [place] 681592-02-28 16:49:00 Test Item Value Reference Range Interpretation Comments Globulin (test code = Globulin) 2.3 1.9-3.7 [place] 681592-02-28 16:49:00 Test Item Value Reference Range Interpretation Comments A/G Ratio (test code = A/G Ratio) 2.0 1.0-2.5 [place] 681592-02-28 16:49:00 Test Item Value Reference Range Interpretation Comments Bili Total (test code = Bili Total) 0.6 0.2-1.2 [place] 681592-02-28 16:49:00 Test Item Value Reference Range Interpretation Comments Alk Phos (test code = Alk Phos) 56 35-144 [place] 681592-02-28 16:49:00 Test Item Value Reference Range Interpretation Comments ASPARTATE TRANSAMINASE (test code = 20 10-35 ASPARTATE TRANSAMINASE) [place] 681592-02-28 16:49:00 Test Item Value Reference Range Interpretation Comments ALANINE AMINOTRANSFERASE (test code = 27 9-46 ALANINE AMINOTRANSFERASE) [place] 167892-02-28 16:49:00 Test Item Value Reference Range Interpretation Comments WBC X 10x3 (test code = WBC X 10x3) 5.4 3.8-10.8 [place] [address]-02-28 16:49:00 Test Item Value Reference Range Interpretation Comments RBC X 10x6 (test code = RBC X 10x6) 5.53 4.20-5.80 [place] 167892-02-28 16:49:00 Test Item Value Reference Range Interpretation Comments Hgb (test code = Hgb) 15.6 13.2-17.1 [place] 167892-02-28 16:49:00 Test Item Value Reference Range Interpretation Comments Hct (test code = Hct) 46.1 38.5-50.0 [place] 167892-02-28 16:49:00 Test Item Value Reference Range Interpretation Comments MCV (test code = MCV) 83.4 80.0-100.0 [place] 167892-02-28 16:49:00 Test Item Value Reference Range Interpretation Comments MCH (test code = MCH) 28.2 pg 27.0-33.0 [facility] AllianceCenltpiYEHPBVCJDJ0295-03-72 16:49:00 Test Item Value Reference Range Interpretation Comments MCHC (test code = MCHC) 33.8 32.0-36.0 [place] 167892-02-28 16:49:00 Test Item Value Reference Range Interpretation Comments RDW (test code = RDW) 12.8 11.0-15.0 [place] 167892-02-28 16:49:00 Test Item Value Reference Range Interpretation Comments Platelet (test code = Platelet) 207 140-400 [facility] AllianceFlaadsrYGYEVQSNAL2828-79-88 16:49:00 Test Item Value Reference Range Interpretation Comments MPV (test code = MPV) 11.6 7.5-12.5 [facility] AllianceImgsofwMTWKHSRSLS8786-99-81 16:49:00 Test Item Value Reference Range Interpretation Comments Neutrophils # (test code = Neutrophils 2889 2133-8739 #) [facility] AllianceDlkkkanEPDXATEDCO6125-15-90 16:49:00 Test Item Value Reference Range Interpretation Comments Lymphocytes # (test code = Lymphocytes 9515 807-4933 #) [facility] AllianceNrnsykoMWPAPJOFZP3959-57-61 16:49:00 Test Item Value Reference Range Interpretation Comments Monocytes # (test code = Monocytes #) 578 200-950 [place] 167892-02-28 16:49:00 Test Item Value Reference Range Interpretation Comments Eosinophils # (test code = Eosinophils 211 15-500 #) [facility] AllianceTxwiekxKMNUACLYZY0865-84-20 16:49:00 Test Item Value Reference Range Interpretation Comments Basophils # (test code 70 See_Comment [Aut omated message] The = Basophils #) system which generated this result tra nsmitted reference range : <=200. The reference r primitivo was not used to int erpret this result as normal/abnormal . [place] 167892-02-28 16:49:00 Test Item Value Reference Range Interpretation Comments Segs (test code = Segs) 53.5 [facility] HospitalFleanzaCFYWWODPVR2650-90-74 16:49:00 Test Item Value Reference Range Interpretation Comments Lymphocytes (test code = Lymphocytes) 30.6 [facility] HospitalMlvwgviAXIKWIGXUY4836-17-91 16:49:00 Test Item Value Reference Range Interpretation Comments Monocytes (test code = Monocytes) 10.7 [facility] HospitalTktyezmLRFNYXZDJH2194-33-00 16:49:00 Test Item Value Reference Range Interpretation Comments Eosinophils (test code = Eosinophils) 3.9 [facility] HospitalQxdcyabJYDTXRWIEV7480-70-52 16:49:00 Test Item Value Reference Range Interpretation Comments Basophils (test code = Basophils) 1.3 [facility]NhrmconNWMMKQ2109-06-60 16:49:00 Test Item Value Reference Range Interpretation Comments Chol (test code = Chol) 182 [facility] HospitalAnjkwjhVOMBNJ4343-30-85 16:49:00 Test Item Value Reference Range Interpretation Comments HDL (test code = HDL) 64 [facility] HospitalXfuxrzwZPKQQA3431-90-37 16:49:00 Test Item Value Reference Range Interpretation Comments Trig (test code = Trig) 80 [facility] HospitalXerbwmhHIZNID5788-66-68 16:49:00 Test Item Value Reference Range Interpretation Comments LDL (Calculated) (test code = LDL 101 (Calculated)) [facility] HospitalMjktnbtNYFGED6971-56-47 16:49:00 Test Item Value Reference Range Interpretation Comments CHD Risk (test code = CHD Risk) 2.8 [facility] HospitalTftzzquYJIXSY3637-79-19 16:49:00 Test Item Value Reference Range Interpretation Comments Non HDL Chol (test code = Non HDL Chol) 118 [facility] HBGUJGCXE4464-24-40 16:49:00 Test Item Value Reference Range Interpretation Comments PSA (test code = PSA) 2.41 [facility] HospitalCHEM HKBTQ0178-18-96 14:40:00 Test Item Value Reference Range Interpretation Comments Glucose Lvl (test code = Glucose Lvl) 91 65-[address] [facility] ZVYBU5463-22-11 14:40:00 Test Item Value Reference Range Interpretation Comments BUN (test code = BUN) 27 7-[address] [facility] FBHJX6766-32-78 14:40:00 Test Item Value Reference Range Interpretation Comments Creatinine Lvl (test code = Creatinine 1.31 0.70-1.25 Lvl) [facility]2020-12-01 14:40:00 Test Item Value Reference Range Interpretation Comments eGFR NON-AFR. HAITIAN (test code = 58 eGFR NON-AFR. HAITIAN) [facility]2020-12-01 14:40:00 Test Item Value Reference Range Interpretation Comments eGFR (test code = eGFR 67 ) [facility]2020-12-01 14:40:00 Test Item Value Reference Range Interpretation Comments B/C Ratio (test code = B/C Ratio) 21 6-22 [facility]2020-12-01 14:40:00 Test Item Value Reference Range Interpretation Comments Sodium Lvl (test code = Sodium Lvl) 140 135-146 [facility]2020-12-01 14:40:00 Test Item Value Reference Range Interpretation Comments Potassium Lvl (test code = Potassium 4.8 3.5-5.3 Lvl) [facility]2020-12-01 14:40:00 Test Item Value Reference Range Interpretation Comments Chloride Lvl (test code = Chloride Lvl) 104 98-110 [facility]2020-12-01 14:40:00 Test Item Value Reference Range Interpretation Comments CO2 (test code = CO2) 24 20-32 [facility]2020-12-01 14:40:00 Test Item Value Reference Range Interpretation Comments Calcium Lvl (test code = Calcium Lvl) 9.4 8.6-10.3 [facility]2020-12-01 14:40:00 Test Item Value Reference Range Interpretation Comments Total Protein (test code = Total 7.0 6.1-8.1 Protein) [facility]2020-12-01 14:40:00 Test Item Value Reference Range Interpretation Comments Albumin Lvl (test code = Albumin Lvl) 4.7 3.6-5.1 [facility]2020-12-01 14:40:00 Test Item Value Reference Range Interpretation Comments Globulin (test code = Globulin) 2.3 1.9-3.7 [place] 681590-12-01 14:40:00 Test Item Value Reference Range Interpretation Comments A/G Ratio (test code = A/G Ratio) 2.0 1.0-2.5 [place] 681590-12-01 14:40:00 Test Item Value Reference Range Interpretation Comments Bili Total (test code = Bili Total) 0.6 0.2-1.2 [place] [address]-12-01 14:40:00 Test Item Value Reference Range Interpretation Comments Alk Phos (test code = Alk Phos) 57 35-144 [place] 681590-12-01 14:40:00 Test Item Value Reference Range Interpretation Comments ASPARTATE TRANSAMINASE (test code = 21 10-35 ASPARTATE TRANSAMINASE) [facility]2020-12-01 14:40:00 Test Item Value Reference Range Interpretation Comments ALANINE AMINOTRANSFERASE (test code = 18 9-46 ALANINE AMINOTRANSFERASE) [place] 167890-12-01 14:40:00 Test Item Value Reference Range Interpretation Comments WBC X 10x3 (test code = WBC X 10x3) 4.9 3.8-10.8 [place] [address]-12-01 14:40:00 Test Item Value Reference Range Interpretation Comments RBC X 10x6 (test code = RBC X 10x6) 5.56 4.20-5.80 [place] [address]-12-01 14:40:00 Test Item Value Reference Range Interpretation Comments Hgb (test code = Hgb) 15.8 13.2-17.1 [place] [address]-12-01 14:40:00 Test Item Value Reference Range Interpretation Comments Hct (test code = Hct) 47.1 38.5-50.0 [place] [address]-12-01 14:40:00 Test Item Value Reference Range Interpretation Comments MCV (test code = MCV) 84.7 80.0-100.0 [place] [address]-12-01 14:40:00 Test Item Value Reference Range Interpretation Comments MCH (test code = MCH) 28.4 pg 27.0-33.0 [place] [address]-12-01 14:40:00 Test Item Value Reference Range Interpretation Comments MCHC (test code = MCHC) 33.5 32.0-36.0 [place] [address]-12-01 14:40:00 Test Item Value Reference Range Interpretation Comments RDW (test code = RDW) 12.8 11.0-15.0 [place] [address]-12-01 14:40:00 Test Item Value Reference Range Interpretation Comments Platelet (test code = Platelet) 201 140-400 [facility] AllianceZuqpbwhPPJDZWFIGC1334-04-11 14:40:00 Test Item Value Reference Range Interpretation Comments MPV (test code = MPV) 11.1 7.5-12.5 [facility] AllianceIpanzwfAPTLGCUPHA9446-84-34 14:40:00 Test Item Value Reference Range Interpretation Comments Neutrophils # (test code = Neutrophils 2445 8882-6411 #) [facility] AllianceIwnsdyuYDYXXBYGQT9830-86-57 14:40:00 Test Item Value Reference Range Interpretation Comments Lymphocytes # (test code = Lymphocytes 9543 147-8637 #) [facility] AllianceJemgbuvDKHYHYKRKS3702-48-17 14:40:00 Test Item Value Reference Range Interpretation Comments Monocytes # (test code = Monocytes #) 421 200-950 [facility] AllianceSunrqpjUJOQCUDXJL2265-20-69 14:40:00 Test Item Value Reference Range Interpretation Comments Eosinophils # (test code = Eosinophils 221 15-500 #) [facility] AllianceCvgwauqEZWOUXCFQC9337-20-34 14:40:00 Test Item Value Reference Range Interpretation Comments Basophils # (test code 59 See_Comment [Aut omated message] The = Basophils #) system which generated this result tra nsmitted reference range : <=200. The reference r primitivo was not used to int erpret this result as normal/abnormal . [facility] AllianceKpcizzzNRASXVBPEQ2048-69-39 14:40:00 Test Item Value Reference Range Interpretation Comments Segs (test code = Segs) 49.9 [facility] AllianceYuzjwsqJWHGJDKHUT9489-40-54 14:40:00 Test Item Value Reference Range Interpretation Comments Lymphocytes (test code = Lymphocytes) 35.8 [facility] AllianceCfdmcwdRDVSEFXRPS8138-73-15 14:40:00 Test Item Value Reference Range Interpretation Comments Monocytes (test code = Monocytes) 8.6 [facility] AllianceUugspeyMTHUDREXEX0628-58-00 14:40:00 Test Item Value Reference Range Interpretation Comments Eosinophils (test code = Eosinophils) 4.5 [facility] AllianceCppdosyWXSAZNXXEE8545-72-23 14:40:00 Test Item Value Reference Range Interpretation Comments Basophils (test code = Basophils) 1.2 [facility] CenterAgazbxlQBCQXN2897-46-72 14:40:00 Test Item Value Reference Range Interpretation Comments Chol (test code = Chol) 198 [place] 200860-12-01 14:40:00 Test Item Value Reference Range Interpretation Comments HDL (test code = HDL) 64 [facility] HospitalMwflbzrKLTJBK9836-85-96 14:40:00 Test Item Value Reference Range Interpretation Comments Trig (test code = Trig) 66 [facility] HospitalIraokceKMXQMR5364-78-17 14:40:00 Test Item Value Reference Range Interpretation Comments LDL (Calculated) (test code = LDL 118 (Calculated)) [facility] HospitalCmgfbsdKIJIVW7522-00-49 14:40:00 Test Item Value Reference Range Interpretation Comments CHD Risk (test code = CHD Risk) 3.1 [facility] HospitalEqterqwADKKBR6044-73-73 14:40:00 Test Item Value Reference Range Interpretation Comments Non HDL Chol (test code = Non HDL Chol) 134 [facility] STZYCDAVE5515-95-72 14:40:00 Test Item Value Reference Range Interpretation Comments PSA (test code = PSA) 2.4 [facility]
[2022-06-30] MEDS ORDERED: NA CHLORIDE 0.9% 1,000 ML ONE (15:10)
[2022-06-30 15:54] LABS: Absolute Lymphocytes (CBC) 1.7 K/uL (0.7-4.9); Lymphocytes % 29.2 % (15.3-44.8); MCV 82.9 fL (80-100); RBC Red Blood Cell Count 4.82 M/uL (4.33-5.43)
[2022-06-30 16:01] LABS: Albumin 3.4 g/dL (3.4-5.0); Bilirubin Total 0.7 mg/dL (0.2-1.0); Potassium 3.8 mmol/L (3.5-5.1); Protein, Total 6.3 g/dL (6.4-8.2)
--- NOTE | 2022-06-30 16:38 | RAD REPORT ---
EXAM DESCRIPTION: CTAbdomen Pelvis W Contrast - 06/30/2022 4:29 pm CLINICAL HISTORY: Abdominal pain. worsening diarrhea COMPARISON: Abdomen Pelvis W Contrast dated 06/13/2022 TECHNIQUE: Biphasic CT imaging of the abdomen and pelvis was performed with 100 ml non-ionic IV cont rast. All CT scans are performed using dose optimization technique as appropriate and may include automated exposure control or mA/KV adjustment according to patient size. FINDINGS: The lung bases are clear. The liver, spleen, pancreas, adrenal glands and kidneys are within normal limits. No bowel obstruction, free air, free fluid or abscess. There is moderate thickening of the colon, inv olving the majority of the colon, most compatible with pancolitis. No pneumatosis. The appendix is no rmal. No evidence of significant lymphadenopathy. No suspicious bony findings. IMPRESSION: Moderate thickening of the majority of the colon is present compatible with pancolitis.
--- NOTE | 2022-06-30 17:30 | ER ---
Nurse's Notes [facility] Name: Yusef Andrade Age: 61 yrs Sex: Male : 1960 Arrival Date: 06/30/2022 Time: 14:20 Bed 10 Private MD: Diagnosis: Diarrhea, unspecified;Infectious gastroenteritis and colitis, unspecified Presentation: 06/30 14:28 Chief complaint: Patient states: was admitted here with diarrhea, was put on multiple 5 antibiotics, discharged with antibiotics on 06/09/22 and was told to come back to hospital if diarrhea continued/came back.. pt states stools never returned to normal but they were more formed but now are liquid again and is having to go q2 hours. Coronavirus screen: Vaccine status: Patient reports receiving the 2nd dose of the covid vaccine. Client denies travel out of the [place] in the last 14 days. Ebola Screen: Patient negative for fever greater than or equal to 101.5 degrees Fahrenheit, and additional compatible Ebola Virus Disease symptoms Patient denies exposure to infectious person. Patient denies travel to an Ebola-affected area in the 21 days before illness onset. Initial Sepsis Screen: Does the patient meet any 2 criteria? No. Patient's initial sepsis screen is negative. Does the patient have a suspected source of infection? No. Patient's initial sepsis screen is negative. Risk Assessment: Do you want to hurt yourself or someone else? Patient reports no desire to harm self or others. Onset of symptoms was May 2022. 14:28 Method Of Arrival: Ambulatory [facility] 14:28 Acuity: HELEN 3 jh5 Triage Assessment: 14:31 General: Appears in no apparent distress. comfortable, slender, well groomed, well jh5 developed, Behavior is calm, cooperative, appropriate for age. Pain: Denies pain. GI: Reports diarrhea. Historical: - Allergies: 14:31 No Known Allergies; jh5 - PMHx: 14:31 Hypertensive disorder; high cholesterol; jh5 - Immunization history:: Adult Immunizations up to date. - Social history:: Smoking status: Patient denies any tobacco usage or history of. - Family history:: not pertinent. - Hospitalizations: : The patient was recently seen at [facility]. Screenin:40 Abuse screen: Denies threats or abuse. Nutritional screening: No deficits noted. em6 Tuberculosis screening: No symptoms or risk factors identified. Fall Risk IV access (20 points). Total Espinal Fall Scale indicates No Risk (0-24 pts). Assessment: 14:40 General: Appears in no apparent distress. Behavior is cooperative. Pain: Denies pain. em6 Neuro: Cesar Agitation-Sedation Scale (RASS): 0 - Alert and Calm Level of Consciousness is awake, alert, obeys commands, Oriented to person, place, time, situation. Cardiovascular: Patient's skin is warm and dry. Respiratory: Airway is patent Respiratory effort is even, unlabored, Respiratory pattern is regular, symmetrical, Breath sounds are clear bilaterally. GI: Reports diarrhea. : No signs and/or symptoms were reported regarding the genitourinary system. EENT: No signs and/or symptoms were reported regarding the EENT system. Derm: No signs and/or symptoms reported regarding the dermatologic system. Musculoskeletal: Circulation, motion, and sensation intact. Range of motion: intact in all extremities. 15:40 Reassessment: No changes from previously documented assessment. Patient and/or family em6 updated on plan of care and expected duration. Pain level reassessed. Patient is alert, oriented x 3, equal unlabored respirations, skin warm/dry/pink. 16:40 Reassessment: No changes from previously documented assessment. Patient and/or family em6 updated on plan of care and expected duration. Pain level reassessed. Patient is alert, oriented x 3, equal unlabored respirations, skin warm/dry/pink. Vital Signs: 14:28 BP 115 / 94; Pulse 48; Resp 16; Temp 98.4; Pulse Ox 100% ; Weight 81.65 kg; Height 5 [facility] ft. 11 in. (180.34 cm); Pain 0/10; 16:00 BP 136 / 87; Pulse 50; Resp 16; Pulse Ox 100% ; em6 17:26 BP 142 / 90; Pulse 49; Resp 16; Pulse Ox 100% on R/A; em6 14:28 Body Mass Index 25.10 (81.65 kg, 180.34 cm) [facility] ED Course: 14:20 Patient arrived in ED. mr 14:31 Triage completed. [facility] 14:31 Arm band placed on right wrist. [facility] 14:32 Grant Brewer MD is Attending Physician. rn 14:40 Bed in low position. Call light in reach. Side rails up X 1. Pulse ox on. NIBP on. Warm em6 blanket given. 14:49 Miladys Dinero, RN is Primary Nurse. em6 15:15 Inserted saline lock: 20 gauge in left antecubital area, using aseptic technique. Blood em6 collected. 15:30 CBC with Diff Sent. em6 15:30 CMP Sent. em6 15:30 Lipase Sent. em6 16:31 CT Abd/Pelvis - IV Contrast Only In Process Unspecified. EDMS 17:42 No provider procedures requiring assistance completed. IV discontinued, intact, em6 bleeding controlled, No redness/swelling at site. Pressure dressing applied. Administered Medications: 15:15 Drug: NS 0.9% 1000 ml Route: IV; Rate: 1 bolus; Site: left forearm; em6 16:20 Follow up: Response: No adverse reaction; IV Status: Completed infusion; IV Intake: em6 1000ml Medication: 17:42 VIS not applicable for this client. em6 Intake: 16:20 IV: 1000ml; Total: 1000ml. em6 Outcome: 17:29 Discharge ordered by . rn 17:42 Discharged to home ambulatory. em6 17:42 Condition: stable 17:42 Discharge instructions given to patient, Instructed on discharge instructions, follow up and referral plans. medication usage, Demonstrated understanding of instructions, follow-up care, medications, Prescriptions given X 1. 17:43 Patient left the ED. em6 Signatures: Dispatcher [employer] EDMT Caitlin Pederson Grant Nelson MD MD rn Rees, Jessica, RN RN jh5 Miladys Dinero, RN RN em6 Corrections: (The following items were deleted from the chart) 17:26 16:29 Reassessment: Patient left to CT via wheelchair. em6 em6
--- NOTE | 2022-06-30 17:30 | EDPHYS ---
Physician Documentation [facility] Name: Yusef Andrade Age: 61 yrs Sex: Male : 1960 Arrival Date: 06/30/2022 Time: 14:20 Bed 10 Private MD: ED Physician Grant Brewer HPI: 06/30 15:35 This 61 yrs old Male presents to ER via Ambulatory with complaints of Diarrhea. rn 15:35 The patient presents to the emergency department with diarrhea. Onset: The rn symptoms/episode began/occurred 10 week(s) ago. Possible causes: unknown. The symptoms are aggravated by nothing. The symptoms are alleviated by nothing. Associated signs and symptoms: Pertinent negatives: abdominal pain, fever, GI bleeding, vomiting. Severity of symptoms: At their worst the symptoms were moderate in the emergency department the symptoms have improved. The patient has experienced a previous episode. The patient has been recently been admitted at [facility]. Pt reports now 10 weeks of diarrhea/loose stool, admitted here recently and treated for pancolitis, doing overall better, but diarrhea returning, not as bad, non-bloody. No abd pain/vomiting/fever. Came in for reeval as he does not want it to get as bad again.. Historical: - Allergies: 14:31 No Known Allergies; jh5 - PMHx: 14:31 Hypertensive disorder; high cholesterol; 5 - Immunization history:: Adult Immunizations up to date. - Social history:: Smoking status: Patient denies any tobacco usage or history of. - Family history:: not pertinent. - Hospitalizations: : The patient was recently seen at [facility]. ROS: 15:35 Constitutional: Negative for fever, chills, and weight loss, Eyes: Negative for injury, rn pain, redness, and discharge, Neck: Negative for injury, pain, and swelling, Cardiovascular: Negative for chest pain, palpitations, and edema, Respiratory: Negative for shortness of breath, cough, wheezing, and pleuritic chest pain, Abdomen/GI: Negative for abdominal pain, nausea, vomiting, and constipation, Back: Negative for injury and pain, : Negative for injury, bleeding, discharge, and swelling, MS/Extremity: Negative for injury and deformity, Skin: Negative for injury, rash, and discoloration, Neuro: Negative for headache, weakness, numbness, tingling, and seizure. Exam: 15:35 Constitutional: This is a well developed, well nourished patient who is awake, alert, rn and in no acute distress. Head/Face: Normocephalic, atraumatic. Cardiovascular: Bradycardic, regular. No pulse deficits. Respiratory: No increased work of breathing, no retractions or nasal flaring. Abdomen/GI: Soft, non-tender, non-distended Skin: Warm, dry MS/ Extremity: Pulses equal, no cyanosis. Neuro: Awake and alert, GCS 15 Vital Signs: 14:28 BP 115 / 94; Pulse 48; Resp 16; Temp 98.4; Pulse Ox 100% ; Weight 81.65 kg; Height 5 5 ft. 11 in. (180.34 cm); Pain 0/10; 16:00 BP 136 / 87; Pulse 50; Resp 16; Pulse Ox 100% ; em6 17:26 BP 142 / 90; Pulse 49; Resp 16; Pulse Ox 100% on R/A; em6 14:28 Body Mass Index 25.10 (81.65 kg, 180.34 cm) [facility] MDM: 14:32 Patient medically screened. rn 17:27 Differential diagnosis: viral gastroenteritis, gastroenteritis, colitis, cdiff. Data rn reviewed: vital signs, nurses notes, old medical records, lab test result(s), radiologic studies, CT scan, and as a result, I will discharge patient. Counseling: I had a detailed discussion with the patient and/or guardian regarding: the historical points, exam findings, and any diagnostic results supporting the discharge/admit diagnosis, lab results, radiology results, the need for outpatient follow up, to return to the emergency department if symptoms worsen or persist or if there are any questions or concerns that arise at home. Special discussion: I discussed with the patient/guardian in detail that at this point there is no indication for admission to the hospital. It is understood, however, that if the symptoms persist or worsen the patient needs to return immediately for re-evaluation. Based on the history and exam findings, there is no indication for further emergent testing or inpatient evaluation. I discussed with the patient/guardian the need to see the contractor [employer] for further evaluation of the symptoms. ED course: WBC down to 5 from 19, no abd tenderness, ct shows improvement of pancolitis but still colitis. Discussed case with family and patient, will extend his abx given he tolerated well and overall improved, could just need more time. Return precautions given and understood.. 06/30 14: Order name: CBC with Diff; Complete Time: 16:04 rn 06/30 14:33 Order name: CMP; Complete Time: 16:04 rn 06/30 14:33 Order name: Lipase; Complete Time: 16:04 rn 06/30 14:33 Order name: CT Abd/Pelvis - IV Contrast Only; Complete Time: 16:51 rn 06/30 14: Order name: IV Saline Lock; Complete Time: 15:30 rn 06/30 14: Order name: Labs collected and sent; Complete Time: 15:30 rn Administered Medications: 15:15 Drug: NS 0.9% 1000 ml Route: IV; Rate: 1 bolus; Site: left forearm; em6 16:20 Follow up: Response: No adverse reaction; IV Status: Completed infusion; IV Intake: em6 1000ml Disposition Summary: 06/30/22 17:29 Discharge Ordered Location: Home rn Problem: new rn Symptoms: have improved rn Condition: Stable rn Diagnosis - Diarrhea, unspecified rn - Infectious gastroenteritis and colitis, unspecified rn Followup: rn - With: Private Physician - When: As needed - Reason: Recheck today's complaints, Re-evaluation by your physician Discharge Instructions: - Discharge Summary Sheet rn - Diarrhea, Adult rn - Colitis rn Forms: - Medication Reconciliation Form rn - Thank You Letter rn - 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
[2022-06-30 17:53] VITALS: TEMP 98.4; O2SAT 100
[2022-06-30 18:09] VITALS: BP 142/90
== END 2022-06-30 17:43 | disposition home or self-care (01) ==
LOC: ER 14:17
DX: A09 Infectious gastroenteritis and colitis, unspecified (principal); I10 Essential (primary) hypertension; E78.00 Pure hypercholesterolemia, unspecified
CPT/HCPCS: 85025; 36415; 83690; 80053; 74177; 96360; 99284; Q9967; J7030